=== PATIENT | male | born 1980 | race Two or more races ===

== ENCOUNTER 2018-10-15 23:45 | Emergency (ER) | payer MEDICAID ==
[~2018-10-15] VITALS: Ht 177.8 cm; Wt 77.1 kg
== END 2018-10-16 00:13 | disposition left against medical advice (07) ==
LOC: ER 23:49
DX: Z04.1 Encounter for examination and observation following transport accident (principal); Z53.21 Procedure and treatment not carried out due to patient leaving prior to being seen by health care provider